=== PATIENT | male | born 1955 | race Caucasian/White ===

== ENCOUNTER 2020-06-23 08:18 | Outpatient (REF) | payer OTHER, SELFPAY ==
[2020-06-23 11:25] LABS: Hematocrit 44.3 % (42-52); Hemoglobin 14.6 g/dl (14.0-18.0); Mean Corpuscular Volume 88.1 fL (80-98); Mean Platelet Volume 12.1 fL (9.4-12.4); Platelet Count 195 X10*3/uL (160-400); Red Blood Count 5.03 X10*6/uL (4.60-5.80); Red Cell Distribution Width 12.2 % (11.0-16.0); White Blood Count 6.1 X10*3/uL (4.8-10.8)
[2020-06-23 11:53] LABS: Alanine Aminotransferase 20 U/L (0-40); Albumin Level 4.2 g/dL (3.5-5.0); Alkaline Phosphatase 79 U/L (39-117); Anion Gap 12 (12-20); Aspartate Amino Transferase 15 U/L (5-37); Bilirubin Total 0.6 mg/dL (0.0-1.0); Blood Urea Nitrogen 16 mg/dL (9-16); Calcium 8.7 mg/dL (8.4-10.2); Carbon Dioxide 26 mmol/L (22-29); Chloride 104 mmol/L (96-108); Cholesterol 170 mg/dL; Estimated Glomerular Filt Rate > 60; Glucose Fasting 97 mg/dL (60-99); HDL Cholesterol 42 mg/dL; LDL Cholesterol Calculated 105 mg/dl; Potassium 4.3 mmol/l (3.3-5.1); Sodium 138 mmol/L (135-145); Total Protein 6.7 g/dL (6.5-8.0); Triglycerides 115 mg/dL
[2020-06-23 11:57] LABS: Prostate Specific Antigen Scr 0.55 ng/mL (<0.05-4.0)
[2020-06-23 12:54] LABS: Glucose Urine UA NEG (NEG); Leukocyte Esterase Urine NEG (NEG); Nitrite Urine NEG (NEG); Urine Blood NEG (NEG); Urine Ketones NEG (NEG); Urine Protein NEG (NEG-TRACE)
[2020-06-23 12:55] LABS: Appearance Urine CLEAR; Color Urine YELLOW
== END 2020-06-23 08:19 | disposition home or self-care (01) ==
LOC: HO.HMGCLDS 08:18
PROVIDERS: PCP Internal Medicine; Visit Provider Internal Medicine
DX: Z00.00 Encounter for general adult medical examination without abnormal findings (principal); R73.9 Hyperglycemia, unspecified
CPT/HCPCS: 36415; 80053; 80061; 81003; 84153; 85027

== ENCOUNTER 2021-07-04 08:37 | Outpatient (REF) | payer OTHER, SELFPAY ==
[2021-07-04 11:33] LABS: Hematocrit 45.6 % (42.0-52.0); Hemoglobin 15.2 g/dl (14.0-18.0); Mean Corpuscular HGB Conc 33.3 g/dl (31.0-36.0); Mean Corpuscular Hemoglobin 28.9 pg (27.0-33.0); Mean Corpuscular Volume 86.7 fL (80.0-98.0); Mean Platelet Volume 12.1 fL (9.4-12.4); Platelet Count 194 X10*3/uL (160-400); Red Blood Count 5.26 X10*6/uL (4.60-5.80)
[2021-07-04 11:41] LABS: Appearance Urine CLEAR; Color Urine YELLOW; Glucose Urine UA NEG (NEG); Leukocyte Esterase Urine NEG (NEG); Nitrite Urine NEG (NEG); Specific Gravity - Urine <= 1.005 (1.005-1.025); Urine Blood NEG (NEG); Urine Ketones NEG (NEG); Urine Protein NEG (NEG-TRACE)
[2021-07-04 11:56] LABS: Alanine Aminotransferase 20 U/L (0-40); Albumin Level 4.3 g/dL (3.5-5.0); Alkaline Phosphatase 81 U/L (39-117); Anion Gap 11 (12-20); Aspartate Amino Transferase 22 U/L (5-37); Bilirubin Total 0.7 mg/dL (0.0-1.0); Blood Urea Nitrogen 14 mg/dL (9-16); Carbon Dioxide 28 mmol/L (22-29); Chloride 104 mmol/L (96-108); Cholesterol 179 mg/dL; Estimated Glomerular Filt Rate > 60; Glucose Fasting 107 mg/dL (60-99); HDL Cholesterol 39 mg/dL; LDL Cholesterol Calculated 106 mg/dl; Potassium 4.3 mmol/L (3.3-5.1); Sodium 139 mmol/L (135-145); Total Protein 6.8 g/dL (6.5-8.0); Triglycerides 173 mg/dL
[2021-07-04 12:38] LABS: Prostate Specific Antigen Scr 0.92 ng/mL (<0.05-4.0)
== END 2021-07-04 08:38 | disposition home or self-care (01) ==
LOC: HO.HMGCLDS 08:37
PROVIDERS: PCP Internal Medicine; Visit Provider Internal Medicine
DX: Z00.00 Encounter for general adult medical examination without abnormal findings (principal); Z12.5 Encounter for screening for malignant neoplasm of prostate; G47.33 Obstructive sleep apnea (adult) (pediatric); E66.3 Overweight; Z99.89 Dependence on other enabling machines and devices
CPT/HCPCS: 36415; 80053; 80061; 81003; 84153; 85027

== ENCOUNTER 2022-02-23 08:15 | Outpatient (REF) | payer OTHER, SELFPAY ==
[2022-02-23 11:25] LABS: Appearance Urine CLEAR; Color Urine YELLOW; Glucose Urine UA NEG (NEG); Leukocyte Esterase Urine NEG (NEG); Nitrite Urine NEG (NEG); Specific Gravity - Urine 1.015 (1.005-1.025); Urine Blood TRACE (NEG); Urine Ketones NEG (NEG); Urine Protein NEG (NEG-TRACE)
[2022-02-23 11:44] LABS: Alanine Aminotransferase 21 U/L (0-40); Albumin Level 4.4 g/dL (3.5-5.0); Alkaline Phosphatase 90 U/L (39-117); Anion Gap 12 (12-20); Aspartate Amino Transferase 16 U/L (5-37); Bilirubin Total 0.7 mg/dL (0.0-1.0); Blood Urea Nitrogen 17 mg/dL (9-16); Calcium 9.5 mg/dL (8.4-10.2); Carbon Dioxide 28 mmol/L (22-29); Chloride 106 mmol/L (96-108); Cholesterol 172 mg/dL; Estimated Glomerular Filt Rate > 60; Glucose Fasting 99 mg/dL (60-99); HDL Cholesterol 40 mg/dL; LDL Cholesterol Calculated 112 mg/dl; Potassium 4.5 mmol/L (3.3-5.1); Sodium 141 mmol/L (135-145); Triglycerides 100 mg/dL
[2022-02-23 11:53] LABS: Creatinine Urine 154.84 mg/dL; Microalbum/Creatinine Ratio Ur 4.5 ug/mg cr
[2022-02-23 12:03] LABS: Estimated Average Glucose 97 mg/dL
[2022-02-23 12:23] LABS: RBC Urine 0-2 /HPF (0); WBC Urine 0 /HPF (0-4)
== END 2022-02-23 08:16 | disposition home or self-care (01) ==
LOC: HO.HMGCLDS 08:15
PROVIDERS: Visit Provider Internal Medicine
DX: Z00.00 Encounter for general adult medical examination without abnormal findings (principal); R73.9 Hyperglycemia, unspecified; E66.3 Overweight
CPT/HCPCS: 36415; 80053; 80061; 81001; 82043; 83036

== ENCOUNTER 2022-08-08 07:45 | Outpatient (REF) | payer OTHER, SELFPAY ==
[2022-08-08 11:23] LABS: MANUAL DIFF FLAG NO
[2022-08-08 11:33] LABS: Appearance Urine Clear; Color Urine Yellow; Glucose Urine UA Negative (Negative); Leukocyte Esterase Urine Negative (Negative); Nitrite Urine Negative (Negative); PH 6.5 (5.0-9.0); Specific Gravity - Urine 1.015 (1.005-1.025); UMIC TRIGGER UA YES; Urine Blood Trace (Negative); Urine Ketones Negative (Negative); Urine Protein Negative (Neg-Trace)
[2022-08-08 11:36] LABS: Basophils Absolute Auto 0.1 X10*3/uL (0.0-0.2); Basophils Percent Auto 0.8 % (0-2); Eosinophils Absolute Auto 0.3 X10*3/uL (0.0-0.4); Eosinophils Percent Auto 4.3 % (0-4); Hematocrit 45.3 % (42.0-52.0); Imm Gran Abs Auto 0.02 X10*3/uL (0.00-0.03); Imm Gran Pct Auto 0.3 % (0.0-0.4); Lymphocytes Absolute Auto 1.8 X10*3/uL (1.2-4.9); Lymphocytes Percent Auto 28.3 % (20-40); Mean Corpuscular HGB Conc 33.1 g/dl (31.0-36.0); Mean Corpuscular Hemoglobin 28.5 pg (27.0-33.0); Mean Corpuscular Volume 86.1 fL (80.0-98.0); Mean Platelet Volume 11.3 fL (9.4-12.4); Monocytes Absolute Auto 0.4 X10*3/uL (0.1-1.2); Monocytes Percent Auto 6.9 % (2-11); Neutrophils Absolute Auto 3.7 x10*3/uL (2.0-8.3); Neutrophils Percent Auto 59.4 % (45-73); Platelet Count 196 X10*3/uL (160-400); Red Blood Count 5.26 X10*6/uL (4.60-5.80); Red Cell Distribution Width 12.3 % (11.0-16.0); White Blood Count 6.2 X10*3/uL (4.8-10.8)
[2022-08-08 11:40] LABS: Bacteria Urine None Seen (None Seen); Hyaline Casts Urine 0-2 /LPF (0-2); RBC Urine 0-2 /HPF (0-2); Squamous Epithelial Cell Urine 0-2 /HPF (0-2); WBC Urine 0-5 /HPF (0-5)
[2022-08-08 12:57] LABS: Alanine Aminotransferase 22 U/L (0-40); Albumin Level 4.3 g/dL (3.5-5.0); Alkaline Phosphatase 87 U/L (39-117); Anion Gap 11 (12-20); Aspartate Amino Transferase 17 U/L (5-37); Bilirubin Total 0.8 mg/dL (0.0-1.0); Blood Urea Nitrogen 18 mg/dL (9-16); Calcium 9.1 mg/dL (8.4-10.2); Carbon Dioxide 29 mmol/L (22-29); Chloride 105 mmol/L (96-108); Cholesterol 171 mg/dL; Estimated Glomerular Filt Rate > 60; Glucose Fasting 102 mg/dL (60-99); HDL Cholesterol 40 mg/dL; LDL Cholesterol Calculated 112 mg/dl; PSA,Total (Free>4and<10) 0.87 ng/mL (0.00-4.00); Potassium 4.5 mmol/L (3.3-5.1); Sodium 140 mmol/L (135-145); Total Protein 6.8 g/dL (6.5-8.0); Triglycerides 97 mg/dL
== END 2022-08-08 07:46 | disposition home or self-care (01) ==
LOC: HO.HMGCLDS 07:45
PROVIDERS: PCP Internal Medicine; Visit Provider Internal Medicine
DX: Z00.00 Encounter for general adult medical examination without abnormal findings (principal); R73.9 Hyperglycemia, unspecified; E66.3 Overweight; Z12.5 Encounter for screening for malignant neoplasm of prostate
CPT/HCPCS: 36415; 80053; 80061; 81001; 84153; 85025

== ENCOUNTER 2023-10-03 07:49 | Outpatient (REF) | payer OTHER, SELFPAY ==
[2023-10-03 11:43] LABS: Hemoglobin 15.7 g/dl (14.0-18.0); Mean Corpuscular HGB Conc 34.1 g/dl (31.0-36.0); Mean Corpuscular Hemoglobin 29.5 pg (27.0-33.0); Mean Corpuscular Volume 86.5 fL (80.0-98.0); Mean Platelet Volume 11.6 fL (9.4-12.4); Platelet Count 197 X10*3/uL (160-400); Red Blood Count 5.32 X10*6/uL (4.60-5.80); Red Cell Distribution Width 11.9 % (11.0-16.0); White Blood Count 6.7 X10*3/uL (4.8-10.8)
[2023-10-03 11:45] LABS: Alanine Aminotransferase 16 U/L (0-40); Albumin Level 4.1 g/dL (3.5-5.0); Alkaline Phosphatase 72 U/L (39-117); Anion Gap 10 (12-20); Aspartate Amino Transferase 15 U/L (5-37); Bilirubin Total 0.9 mg/dL (0.0-1.0); Blood Urea Nitrogen 19 mg/dL (9-16); Calcium 9.4 mg/dL (8.4-10.2); Carbon Dioxide 29 mmol/L (22-29); Chloride 104 mmol/L (96-108); Cholesterol 182 mg/dL (<200); Estimated Glomerular Filt Rate > 60; Glucose Fasting 98 mg/dL (60-99); HDL Cholesterol 45 mg/dL (>40); LDL Cholesterol Calculated 117 mg/dL (<100); Potassium 4.3 mmol/L (3.3-5.1); Sodium 139 mmol/L (135-145); Triglycerides 100 mg/dL (<150)
[2023-10-03 11:46] LABS: Estimated Average Glucose 97 mg/dL
[2023-10-03 12:09] LABS: PSA,Total (Free>4and<10) 1.31 ng/mL (0.00-4.00)
== END 2023-10-03 07:50 | disposition home or self-care (01) ==
LOC: HO.HMGCLDS 07:49
PROVIDERS: PCP Internal Medicine; Visit Provider Internal Medicine
DX: Z00.00 Encounter for general adult medical examination without abnormal findings (principal); Z12.5 Encounter for screening for malignant neoplasm of prostate; R73.9 Hyperglycemia, unspecified; N40.0 Benign prostatic hyperplasia without lower urinary tract symptoms; I10 Essential (primary) hypertension
CPT/HCPCS: 36415; 80053; 80061; 83036; 84153; 85027

== ENCOUNTER 2023-10-24 11:11 | Outpatient (AMB) | payer OTHER, SELFPAY ==
[2023-10-24 11:13] VITALS: BP 138/76; PULSE 83; O2SAT 98; BMI 27.9
--- NOTE | 2023-10-24 11:13 | MHC.PC.OV ---
Vital Signs 10/24/23 11:13 Height 6 ft Weight 206 lb BMI 27.9 BP 138/76 Blood Pressure Location Lt brachial Position Sitting Pulse 83 Pulse Source Pulse Oximeter Pulse Oximetry (%) 98 Oxygen Delivery Method Room Air Intake Visit Reasons: Medications F/U Intake Note: Pt is here today for a follow up visit. Allergies No Known Allergies Allergy (Verified 10/24/23 11:16) Medication List - Last Reconciled 10/24/23 by Rabia Chun MD metoprolol succinate ER 50 mg PO DAILY semaglutide (weight loss) (Wegovy) 2.4 mg (0.75 mL) subcut QWEEK Tobacco use date assessed: 10/24/23 Fall risk assessment: No Falls in past year Last assessed Fall Risk: 10/24/23 Dental Screening Dental Screen Date: 10/24/23 Did you have a dental visit in the last 12 months?: Yes Did you have a dental problem in the last 6 months where you did not have access to dental care?: No Was dental information given to patient?: Patient has dentist HPI HPI Comments History of Present Illness Details Pt presents for PE. His 90 y/o mother is hospitalized at [facility] for CHF. Pt's daughter is getting in December in [place]. Patient has been under stress and not exercising regulalyr FORMERLY [facility], [facility] Medical History Hyperglycemia TAPAN on CPAP Overweight BPH (benign prostatic hyperplasia) History of basal cell cancer Annual physical exam Surgical History (Updated 10/24/23 @ 15:40 by Rabia Chun MD) H/O colonoscopy Family History Father No problems noted. Mother Pacemaker Social History Housing: House Patient Tobacco Use Status: Never used Tobacco e-Cigarette/Vaping Use: Never Used Current occupational status: employed Cognitive needs: No Hearing needs: Yes Vision needs: Yes Questionnaire Thrive Questionnaire Date Thrive assessed: 08/14/22 AUDIT C Alcohol Use Questionnaire (AUDIT-C) 1. How often do you have a drink containing alcohol?: 2-3 times a week 2. How many drinks containing alcohol do you have on a typical day when you are drinking?: 1 or 2 3. How often do you have six or more drinks on one occasion?: Never Total Score: 3 ROGERIO-7 AMB Questionnaire ROGERIO-7 Date ROGERIO - 7 assessed: 08/14/22 Feeling nervous, anxious, or on edge: 0 = Not at all Not being able to stop or control worryin = Not at all Worrying too much about different things: 0 = Not at all Trouble relaxin = Not at all Being so restless that it is hard to sit still: 0 = Not at all Becoming easily annoyed or irritable: 0 = Not at all Feeling afraid as if something awful might happen: 0 = Not at all Total ROGERIO-7 score (0-4 normal; 5-9 mild; 10-14 moderate; 15-21 severe): 0 Source: Developed by Drs. Robert Mejia, Miriam Caro, Griffin Renner and colleagues, with an educational louis from [employer]. Review of Systems Const All systems reviewed & are unremarkable except as noted in HPI and below Reports no additional complaints Eyes Reports no additional complaints ENT Reports no additional complaints Card Reports no additional complaints Resp Reports no additional complaints GI Reports no additional complaints Reports no additional complaints Musc Reports no additional complaints Physical exam (Primary Care) Vital Signs: Last Vital Signs Pulse 83 10/24/23 11:13 BP 138/76 10/24/23 11:13 Pulse Ox 98 10/24/23 11:13 Oxygen Delivery Method Room Air 10/24/23 11:13 BMI result Body Mass Index 27.9 Tobacco/Smoking Status: Tobacco use Status Tobacco use date assessed 10/24/23 10/24/23 11:19 Patient Tobacco Use Status Never used Tobacco 10/24/23 11:19 e-Cigarette/Vaping Use Never Used 10/24/23 11:15 Thrive Assessment: Date of Thrive Assessment Date Thrive assessed 08/14/22 10/24/23 11:15 Const General: no acute distress HENMT Head: Yes normal to inspection General nose exam: Normal external nose present Mouth: Normal oral and palatal mucosa present Eyes General: appearance normal, both eyes and all related structures Neck Neck: Yes no lymphadenopathy and Yes supple Resp Effort & Inspection: normal respiratory effort Auscultation: clear to auscultation bilaterally Cardio Rhythm: regular rhythm Heart sounds: S1 normal heart sound present and S2 normal heart sound present GI Inspection: Yes normal to inspection Palpation (GI): Soft to palpation Percussion: Yes normal to percussion Auscultation: normal bowel sounds Assessment and Plan Assessment & Plan (1) BPH (benign prostatic hyperplasia): Comment: prostate nodules s/p bx, [facility] Urology Dr. Jain Code(s): N40.0 - Benign prostatic hyperplasia without lower urinary tract symptoms Plan: Follow-up with urology (2) HTN (hypertension): Code(s): I10 - Essential (primary) hypertension Plan: Increase metoprolol to 50 mg a day follow-up in 6 weeks for blood pressure (3) TAPAN on CPAP: Comment: f/u Code(s): G47.33 - Obstructive sleep apnea (adult) (pediatric); Z99.89 - Dependence on other enabling machines and devices Plan: Continue CPAP and follow-up with pulmonology (4) Overweight: Comment: on Wegovy Code(s): E66.3 - Overweight Plan: Stable on Wegovy (5) H/O colonoscopy: Comment: 12/2016 polyps recheck 5 years Code(s): Z98.890 - Other specified postprocedural states Plan: Patient will call [facility] GI to schedule follow-up colonoscopy Medications: New metoprolol succinate ER 50 mg PO DAILY 90 tabs 0RF Coding Level of Care Code Est Pt Prev Care >65y(56338) Diagnoses BPH (benign prostatic hyperplasia) N40.0 HTN (hypertension) I10 TAPAN on CPAP G47.33; Z99.89 Overweight E66.3 H/O colonoscopy Z98.890
== END 2023-10-24 15:41 | disposition home or self-care (01) ==
PROVIDERS: PCP Internal Medicine; Visit Provider Internal Medicine
DX: Z00.00 Encounter for general adult medical examination without abnormal findings (principal); N40.0 Benign prostatic hyperplasia without lower urinary tract symptoms; I10 Essential (primary) hypertension; G47.33 Obstructive sleep apnea (adult) (pediatric); Z99.89 Dependence on other enabling machines and devices; E66.3 Overweight; Z98.890 Other specified postprocedural states
CPT/HCPCS: 99397

== ENCOUNTER 2023-12-05 10:58 | Outpatient (AMB) | payer OTHER, SELFPAY ==
[2023-12-05 10:59] VITALS: BP 120/74; PULSE 72; O2SAT 98; BMI 28.1
--- NOTE | 2023-12-05 10:59 | MHC.PC.OV ---
Vital Signs 12/05/23 10:59 Height 6 ft Weight 207 lb BMI 28.1 BP 120/74 Blood Pressure Location Rt brachial Position Sitting Pulse 72 Pulse Source Pulse Oximeter Pulse Oximetry (%) 98 Oxygen Delivery Method Room Air Intake Visit Reasons: 6 week follow up Intake Note: Pt is here today for 6 weeks follow up on weight. Allergies No Known Allergies Allergy (Verified 12/05/23 10:59) Medication List - Last Reconciled 12/05/23 by Rabia Chun MD metoprolol succinate ER 50 mg PO DAILY semaglutide (weight loss) (Wegovy) 2.4 mg (0.75 mL) subcut QWEEK Tobacco use date assessed: 12/05/23 Dental Screening Dental Screen Date: 10/24/23 HPI 6 week follow up HPI Details Patient presents for the follow-up on hypertension better controlled high dose of metoprolol. Patient has been exercising regularly. His daughter is getting in 5 weeks in [place]. [facility] Medical History Hyperglycemia TAPAN on CPAP Overweight BPH (benign prostatic hyperplasia) History of basal cell cancer Annual physical exam Surgical History H/O colonoscopy Family History Father No problems noted. Mother Pacemaker Social History Housing: House Patient Tobacco Use Status: Never used Tobacco e-Cigarette/Vaping Use: Never Used service: No Current occupational status: employed Cognitive needs: No Hearing needs: Yes Vision needs: Yes Questionnaire Thrive Questionnaire Date Thrive assessed: 08/14/22 ROGERIO-7 AMB Questionnaire ROGERIO-7 Date ROGERIO - 7 assessed: 08/14/22 Source: Developed by Drs. Robert Mejia, Miriam Caro, Griffin Renner and colleagues, with an educational louis from [employer]. Review of Systems Const All systems reviewed & are unremarkable except as noted in HPI and below Eyes Reports no additional complaints ENT Reports no additional complaints Card Reports no additional complaints Resp Reports no additional complaints GI Reports no additional complaints Physical exam (Primary Care) Vital Signs: Last Vital Signs Pulse 72 12/05/23 10:59 BP 120/74 12/05/23 10:59 Pulse Ox 98 12/05/23 10:59 Oxygen Delivery Method Room Air 12/05/23 10:59 BMI result Body Mass Index 28.1 Tobacco/Smoking Status: Tobacco use Status Tobacco use date assessed 12/05/23 12/05/23 11:03 Patient Tobacco Use Status Never used Tobacco 12/05/23 11:03 e-Cigarette/Vaping Use Never Used 12/05/23 11:03 Thrive Assessment: Date of Thrive Assessment Date Thrive assessed 08/14/22 12/05/23 11:03 Const General: no acute distress HENMT Head: Yes normal to inspection Neck Neck: Yes supple Resp Effort & Inspection: normal respiratory effort Auscultation: clear to auscultation bilaterally Cardio Rhythm: regular rhythm Heart sounds: S1 normal heart sound present and S2 normal heart sound present GI Inspection: Yes normal to inspection Palpation (GI): Soft to palpation Assessment and Plan Assessment & Plan (1) HTN (hypertension): Code(s): I10 - Essential (primary) hypertension Plan: Continue metoprolol follow-up in 6 months (2) Overweight: Comment: on Wegovy Code(s): E66.3 - Overweight Plan: Well-balanced diet regular physical activity discussed with the patient continue Wegovy Orders: Orders Comprehensive [place]. Panel Fast 6 Months I10 - Essential (primary) hypertension, R73.9 - Hyperglycemia, unspecified, Z00.00 - Encounter for general adult medical examination without abnormal findings Lipid Panel 6 Months I10 - Essential (primary) hypertension, R73.9 - Hyperglycemia, unspecified, Z00.00 - Encounter for general adult medical examination without abnormal findings Complete Blood Count Auto Diff 6 Months I10 - Essential (primary) hypertension, R73.9 - Hyperglycemia, unspecified, Z00.00 - Encounter for general adult medical examination without abnormal findings UA w Microscopic 6 Months I10 - Essential (primary) hypertension, R73.9 - Hyperglycemia, unspecified, Z00.00 - Encounter for general adult medical examination without abnormal findings Hemoglobin A1c 6 Months I10 - Essential (primary) hypertension, R73.9 - Hyperglycemia, unspecified, Z00.00 - Encounter for general adult medical examination without abnormal findings Coding Level of Care Code Est Pt Level 3 (98224) Diagnoses HTN (hypertension) I10 Overweight E66.3
== END 2023-12-05 11:57 | disposition home or self-care (01) ==
PROVIDERS: PCP Internal Medicine; Visit Provider Internal Medicine
DX: I10 Essential (primary) hypertension (principal); E66.3 Overweight
CPT/HCPCS: 99213

== ENCOUNTER 2024-10-15 09:18 | Outpatient (REF) | payer OTHER, SELFPAY ==
[2024-10-15 10:13] LABS: MANUAL DIFF FLAG NO
[2024-10-15 10:21] LABS: Appearance Urine Clear; Basophils Absolute Auto 0.1 X10*3/uL (0.0-0.2); Basophils Percent Auto 0.7 % (0-2); Color Urine Yellow; Eosinophils Absolute Auto 0.3 X10*3/uL (0.0-0.4); Eosinophils Percent Auto 4.3 % (0-4); Glucose Urine UA Negative (Negative); Hemoglobin 15.4 g/dl (14.0-18.0); Imm Gran Abs Auto 0.03 X10*3/uL (0.00-0.03); Imm Gran Pct Auto 0.4 % (0.0-0.4); Leukocyte Esterase Urine Negative (Negative); Lymphocytes Absolute Auto 1.7 X10*3/uL (1.2-4.9); Lymphocytes Percent Auto 23.9 % (20-40); Mean Corpuscular Hemoglobin 29.4 pg (27.0-33.0); Mean Corpuscular Volume 84.1 fL (80.0-98.0); Mean Platelet Volume 11.2 fL (9.4-12.4); Monocytes Absolute Auto 0.4 X10*3/uL (0.1-1.2); Monocytes Percent Auto 6.2 % (2-11); Neutrophils Absolute Auto 4.5 x10*3/uL (2.0-8.3); Neutrophils Percent Auto 64.5 % (45-73); Nitrite Urine Negative (Negative); PH 6.5 (5.0-9.0); Platelet Count 214 X10*3/uL (160-400); Red Blood Count 5.23 X10*6/uL (4.60-5.80); Red Cell Distribution Width 12.1 % (11.0-16.0); UMIC TRIGGER UA YES; Urine Blood Small (1+) (Negative); Urine Ketones Negative (Negative); Urine Protein Negative (Neg-Trace)
[2024-10-15 10:27] LABS: Bacteria Urine None Seen (None Seen); Hyaline Casts Urine 0-2 /LPF (0-2); Squamous Epithelial Cell Urine 0-2 /HPF (0-2); WBC Urine 0-5 /HPF (0-5)
[2024-10-15 10:28] LABS: Estimated Average Glucose 100 mg/dL; Hemoglobin A1C 127.7599 umol/L; Hemoglobin A1c % 5.1 % (<6.0); Total Hemoglobin (HGBA1C) 4021.1358 umol/L
[2024-10-15 10:52] LABS: PSA,Total (Free>4and<10) 0.82 ng/mL (0.00-4.00)
[2024-10-15 10:53] LABS: Alanine Aminotransferase 30 U/L (0-40); Albumin Level 4.2 g/dL (3.5-5.0); Alkaline Phosphatase 73 U/L (39-117); Anion Gap 10 (12-20); Aspartate Amino Transferase 20 U/L (5-37); Bilirubin Total 0.8 mg/dL (0.0-1.0); Blood Urea Nitrogen 17 mg/dL (9-16); Calcium 9.4 mg/dL (8.4-10.2); Carbon Dioxide 28 mmol/L (22-29); Chloride 106 mmol/L (96-108); Cholesterol 169 mg/dL (<200); Estimated Glomerular Filt Rate > 60; Glucose Fasting 90 mg/dL (60-99); HDL Cholesterol 42 mg/dL (>40); LDL Cholesterol Calculated 108 mg/dL (<100); Potassium 4.3 mmol/L (3.3-5.1); Sodium 140 mmol/L (135-145); Total Protein 7.2 g/dL (6.5-8.0); Triglycerides 95 mg/dL (<150)
== END 2024-10-15 09:19 | disposition home or self-care (01) ==
LOC: HO.HMGCLDS 09:18
PROVIDERS: PCP Internal Medicine; Visit Provider Internal Medicine
DX: Z00.00 Encounter for general adult medical examination without abnormal findings (principal); I10 Essential (primary) hypertension; R73.9 Hyperglycemia, unspecified; N40.0 Benign prostatic hyperplasia without lower urinary tract symptoms; Z12.5 Encounter for screening for malignant neoplasm of prostate
CPT/HCPCS: 36415; 80053; 80061; 81001; 83036; 84153; 85025

== ENCOUNTER 2024-10-20 11:51 | Outpatient (AMB) | payer OTHER, SELFPAY ==
[2024-10-20 12:17] VITALS: BP 128/70; PULSE 75; RESP 18; TEMP 37.2; O2SAT 98; BMI 28.3
--- NOTE | 2024-10-20 12:17 | A.OFFPC_ITS ---
Vital Signs 10/20/24 12:17 Height 6 ft Weight 209 lb BMI 28.3 BP 128/70 Blood Pressure Location Lt brachial Position Sitting Respiration 18 Pulse 75 Pulse Source Pulse Oximeter Temp 99.0 F Temp Source Oral Pulse Oximetry (%) 98 Oxygen Delivery Method Room Air Intake Visit Reasons: Annual PE/Over due Intake Note: Pt is here today for PE. Allergies No Known Allergies Allergy (Verified 10/20/24 12:35) Medication List - Last Reconciled 10/20/24 by Rabia Chun MD metoprolol succinate ER 50 mg PO DAILY semaglutide (weight loss) (Wegovy) 2.4 mg (0.75 mL) subcut QWEEK Tobacco use date assessed: 10/20/24 Fall risk assessment: No Falls in past year Last assessed Fall Risk: 10/20/24 Dental Screening Dental Screen Date: 10/20/24 Did you have a dental visit in the last 12 months?: Yes Did you have a dental problem in the last 6 months where you did not have access to dental care?: No Was dental information given to patient?: Patient has dentist HPI Annual PE/Over due HPI Details Pt presents for PE. He complains of chronic left shoulder pain and stiffness worse when trying to reach overhead or sleeping on the left side. Patient works out at home. He denies any joint injury [facility] Medical History (Updated 10/20/24 @ 15:04 by Rabia Chun MD) Hyperglycemia TAPAN on CPAP Overweight BPH (benign prostatic hyperplasia) History of basal cell cancer Annual physical exam Surgical History (Updated 10/20/24 @ 12:47 by Rabia Chun MD) H/O colonoscopy Family History Father No problems noted. Mother Pacemaker Social History Housing: House Patient Tobacco Use Status: Never used Tobacco e-Cigarette/Vaping Use: Never Used service: No Current occupational status: employed Cognitive needs: No Hearing needs: Yes Vision needs: Yes Questionnaire PHQ-9 Over the last 2 weeks, how often have you been bothered by any of the following problems? 1. Little interest or pleasure in doing things: not at all 2. Feeling down, depressed, or hopeless: not at all 3. Trouble falling or staying asleep, or sleeping too much: not at all 4. Feeling tired or having little energy: not at all 5. Poor appetite or overeating: not at all 6. Feeling bad about yourself - or that you are a failure or have let yourself or your family down: not at all 7. Trouble concentrating on things, such as reading the newspaper or watching television: not at all 8. Moving or speaking so slowly that other people could have noticed. Or the opposite - being so fidgety or restless that you have been moving around a lot more than usual: not at all 9. Thoughts that you would be better off or of hurting yourself in some way: not at all Total score: 0 Depression Screening Interpretation: Negative Depression Screening Done: Yes 28638 - PHQ-9 Billing: Yes Source: Developed by Drs. Robert Mejia, Miriam Caro, Griffin Renner and colleagues, with an educational louis from [employer]. Thrive Questionnaire Date Thrive assessed: 10/20/24 I am a: Patient What is your living situation today?: I have a steady place to live Within the past 12 months, did the food you bought not last and you didn't have the money to get more?: Never true Within the past 12 months, did you worry whether your food would run out before you got money to buy more?: Never true Do you have trouble paying for medicines?: No Do you have trouble getting transportation to medical appointments?: No Do you have trouble paying your heating and electricity bill?: No Do you have trouble taking care of your child, family member or friend?: No Do you have trouble with day-to-day activities such as bathing, preparing meals, shopping, managing finances, etc.?: No Are you currently unemployed and looking for a job?: No Are you interested in more education?: No Please select the resources that you would like help with: None Currently or been in a relationship where the following occur: I choose not to answer THRIVE Score: 0 AUDIT C Alcohol Use Questionnaire (AUDIT-C) 1. How often do you have a drink containing alcohol?: 2-4 times a month 2. How many drinks containing alcohol do you have on a typical day when you are drinking?: 1 or 2 3. How often do you have six or more drinks on one occasion?: Never Total Score: 2 Score Reviewed/Action Taken: Yes ROGERIO-7 AMB Questionnaire ROGERIO-7 Date ROGERIO - 7 assessed: 10/20/24 Feeling nervous, anxious, or on edge: 0 = Not at all Not being able to stop or control worryin = Not at all Worrying too much about different things: 0 = Not at all Trouble relaxin = Not at all Being so restless that it is hard to sit still: 0 = Not at all Becoming easily annoyed or irritable: 0 = Not at all Feeling afraid as if something awful might happen: 0 = Not at all Total ROGERIO-7 score (0-4 normal; 5-9 mild; 10-14 moderate; 15-21 severe): 0 Source: Developed by Drs. Robert Mejia, Miriam Caro, Griffin Renner and colleagues, with an educational louis from [employer]. ROGERIO-7 Assessment Billing ROGERIO-7 Assessment Tool: ROGERIO-7 Assessment 04783 Review of Systems Const All systems reviewed & are unremarkable except as noted in HPI and below Eyes Reports no additional complaints ENT Reports no additional complaints Card Reports no additional complaints Resp Reports no additional complaints GI Reports no additional complaints Reports no additional complaints Musc Reports no additional complaints Physical exam (Primary Care) Vital Signs: Last Vital Signs Temp 99.0 F 10/20/24 12:17 Pulse 75 10/20/24 12:17 Resp 18 10/20/24 12:17 BP 128/70 10/20/24 12:17 Pulse Ox 98 10/20/24 12:17 Oxygen Delivery Method Room Air 10/20/24 12:17 BMI result Body Mass Index 28.3 Tobacco/Smoking Status: Tobacco use Status Tobacco use date assessed 10/20/24 10/20/24 12:18 Patient Tobacco Use Status Never used Tobacco 10/20/24 12:18 e-Cigarette/Vaping Use Never Used 10/20/24 12:18 PHQ-9: PHQ-9 Score PHQ-9: Total score 0 10/20/24 12:38 Depression Screening Interpretation: Negative Thrive Assessment: Date of Thrive Assessment Date Thrive assessed 10/20/24 10/20/24 12:18 Currently or been in a relationship where the following occur: I choose not to answer Const General: no acute distress HENMT Head: Yes normal to inspection Ears: hearing grossly normal bilaterally Face and sinus: Yes normal facial exam Mouth: Normal oral and palatal mucosa present Throat: Yes posterior oropharynx normal Eyes General: appearance normal, both eyes and all related structures Neck Neck: Yes no lymphadenopathy and Yes supple Resp Effort & Inspection: normal respiratory effort Auscultation: clear to auscultation bilaterally Cardio Rhythm: regular rhythm Heart sounds: S1 normal heart sound present and S2 normal heart sound present GI Inspection: Yes normal to inspection Palpation (GI): Soft to palpation Percussion: Yes normal to percussion Auscultation: normal bowel sounds Extrem Other: There is significantly decreased range of motion of both shoulders right more than left. There is no joint tenderness General: Yes no clubbing, cyanosis or edema Coding Level of Care Code Est Pt Prev Care >65y(74743) Diagnoses Microhematuria R31.29 Shoulder pain, bilateral M25.511; M25.512 Annual physical exam Z00.00 Overweight E66.3 HTN (hypertension) I10 Additional Codes ROGERIO-7 Assessment Billing - ROGERIO-7 Assessment Tool: ROGERIO-7 Assessment 49129 ([id number]) PHQ-9 - 84652 - PHQ-9 Billing: Yes ([id number]) Assessment & Plan Assessment & Plan (1) Microhematuria: Comment: hx negative cystoscopy 2015, established with [facility] Code(s): R31.29 - Other microscopic hematuria Category: Medical Plan: OBTAIN URINE CYTOLOGY RENAL AND BLADDER ULTRASOUND, and follow-up with Urology (2) Shoulder pain, bilateral: Code(s): M25.511 - Pain in right shoulder; M25.512 - Pain in left shoulder Category: Medical Plan: Obtain x-rays of both shoulders patient will schedule an appointment for physical therapy at [facility]. If the pain persists after physical therapy he will be referred to orthopedic surgeon (3) Annual physical exam: Code(s): Z00.00 - Encounter for general adult medical examination without abnormal findings Category: Medical Plan: Well-balanced diet regular physical activity discussed with the patient. Patient will be referred to GI for colonoscopy he is due in June of 2025 (4) Overweight: Comment: on Wegovy Code(s): E66.3 - Overweight Category: Medical Plan: Continue Wegovy decrease caloric intake regular physical activity (5) HTN (hypertension): Code(s): I10 - Essential (primary) hypertension Category: Medical Plan: Continue metoprolol, physical in 1 year Orders: Orders US bladder Today R31.29 - Other microscopic hematuria UA w Microscopic Today R31.29 - Other microscopic hematuria XR shoulder RT min 2V Today M25.511 - Pain in right shoulder, M25.512 - Pain in left shoulder PT Evaluation and Treatment Today M25.511 - Pain in right shoulder, M25.512 - Pain in left shoulder Complete Blood Count Auto Diff 1 Year I10 - Essential (primary) hypertension, N40.0 - Benign prostatic hyperplasia without lower urinary tract symptoms, R73.9 - Hyperglycemia, unspecified, Z00.00 - Encounter for general adult medical examination without abnormal findings UA w Microscopic 1 Year I10 - Essential (primary) hypertension, N40.0 - Benign prostatic hyperplasia without lower urinary tract symptoms, R73.9 - Hyperglycemia, unspecified, Z00.00 - Encounter for general adult medical examination without abnormal findings US renal BI Today R31.29 - Other microscopic hematuria Urine Cytology Today R31.29 - Other microscopic hematuria XR shoulder LT min 2V Today M25.511 - Pain in right shoulder, M25.512 - Pain in left shoulder Comprehensive [place]. Panel Fast 1 Year I10 - Essential (primary) hypertension, N40.0 - Benign prostatic hyperplasia without lower urinary tract symptoms, R73.9 - Hyperglycemia, unspecified, Z00.00 - Encounter for general adult medical examination without abnormal findings Lipid Panel 1 Year I10 - Essential (primary) hypertension, N40.0 - Benign p rostatic hyperplasia without lower urinary tract symptoms, R73.9 - Hyperglycemia, unspecified, Z00.00 - Encounter for general adult medical examination without abnormal findings PSA,Total (Free>4and<10) 1 Year I10 - Essential (primary) hypertension, N40.0 - Benign prostatic hyperplasia without lower urinary tract symptoms, R73.9 - Hyperglycemia, unspecified, Z00.00 - Encounter for general adult medical examination without abnormal findings Referrals Gastroenterology Referral Z00.00 - Encounter for general adult medical examination without abnormal findings
== END 2024-10-20 13:07 | disposition home or self-care (01) ==
PROVIDERS: PCP Internal Medicine; Visit Provider Internal Medicine
DX: R31.29 Other microscopic hematuria (principal); M25.511 Pain in right shoulder; M25.512 Pain in left shoulder; Z00.00 Encounter for general adult medical examination without abnormal findings; E66.3 Overweight; I10 Essential (primary) hypertension

== ENCOUNTER 2024-10-20 11:51 | Outpatient (REF) | payer OTHER, SELFPAY ==
--- NOTE | ~2024-10-20 | XR_ITS ---
EXAMINATION: XR SHOULDER, RIGHT CLINICAL INFORMATION: M25.511 - Pain in right shoulder COMPARISON: None available. TECHNIQUE: Three views of the right shoulder. FINDINGS: Normal bone mineralization. No fracture, dislocation, or suspicious bone lesion. Normal alignment. Severe osteoarthritis glenohumeral joint with large marginal productive osteophytes, joint space loss, and subchondral sclerosis. Moderate to severe arthritic spurring of the AC joint both superiorly and inferiorly. There is a neutral lateral acromion. Mild undersurface spurring. Moderate narrowing of the subacromial space. Remainder of the soft tissue and bony structures appear normal. XR/XR shoulder RT min 2V IMPRESSION: 1. No acute findings right shoulder. 2. Advanced osteoarthritis glenohumeral joint and AC joint. Electronically signed by: Bunny Garcia MD 10/21/2024 10:05 AM ARELY
--- NOTE | ~2024-10-20 | XR_ITS ---
EXAMINATION: XR SHOULDER, LEFT CLINICAL INFORMATION: Pain in left shoulder. COMPARISON: None available. TECHNIQUE: Three views of the left shoulder. FINDINGS: Normal bone mineralization. No fracture, dislocation, or suspicious bone lesion. Normal alignment. Severe osteoarthritis glenohumeral joint with large marginal productive osteophytes, joint space loss, and subchondral sclerosis. Severe arthritic spurring of the AC joint both superiorly and inferiorly. There is a neutral lateral acromion. Mild undersurface spurring. Moderate narrowing of the subacromial space. Remainder of the soft tissue and bony structures appear normal. XR/XR shoulder LT min 2V IMPRESSION: 1. No acute findings left shoulder. 2. Advanced osteoarthritis glenohumeral joint and AC joint. Electronically signed by: Bunny Garcia MD 10/21/2024 10:04 AM ARELY GOINS
== END 2024-10-20 11:52 | disposition home or self-care (01) ==
LOC: HO.HMGCX 11:51
PROVIDERS: PCP Internal Medicine; Visit Provider Internal Medicine
DX: Z00.00 Encounter for general adult medical examination without abnormal findings (principal); M25.511 Pain in right shoulder; M25.512 Pain in left shoulder; R31.29 Other microscopic hematuria; E66.3 Overweight; Z68.28 Body mass index [BMI] 28.0-28.9, adult; I10 Essential (primary) hypertension; Z79.899 Other long term (current) drug therapy
CPT/HCPCS: 73030; 96127

== ENCOUNTER → 2024-10-20 13:24 | Outpatient (BNV) | payer OTHER, SELFPAY | PROVIDERS: PCP Internal Medicine; Visit Provider Radiology Diagnostic Radiology | DX: M19.011 Primary osteoarthritis, right shoulder (principal); M19.012 Primary osteoarthritis, left shoulder | CPT/HCPCS: 73030 ==

== ENCOUNTER 2024-10-28 04:30 | Outpatient (REF) | payer OTHER, SELFPAY ==
[2024-10-28 13:29] LABS: Urine Cytology See Pathology rpt
[2024-10-28 13:37] LABS: Appearance Urine Cloudy; Color Urine Yellow; Glucose Urine UA Negative (Negative); Leukocyte Esterase Urine Negative (Negative); Nitrite Urine Negative (Negative); Urine Blood Negative (Negative); Urine Ketones Negative (Negative); Urine Protein Negative (Neg-Trace)
[2024-10-28 13:53] LABS: Bacteria Urine None Seen (None Seen); Calcium Oxalate Crystals Urine Present; Hyaline Casts Urine 0-2 /LPF (0-2); RBC Urine 0-2 /HPF (0-2); Squamous Epithelial Cell Urine 0-2 /HPF (0-2); WBC Urine 0-5 /HPF (0-5)
== END 2024-10-28 04:31 | disposition home or self-care (01) ==
LOC: HO.HMGCLNP 04:30
PROVIDERS: PCP Internal Medicine; Visit Provider Internal Medicine
DX: R31.29 Other microscopic hematuria (principal)
CPT/HCPCS: 81001; 88112

== ENCOUNTER 2024-11-06 14:25 | Outpatient (REF) | payer OTHER, SELFPAY ==
--- NOTE | ~2024-11-06 | US_ITS ---
CLINICAL HISTORY: R31.29 - Other microscopic hematuria US RENAL Comparison: None Findings: Right kidney normal size and echotexture, 10.9 cm length. Left kidney normal size and echotexture, 10.8 cm length. No collecting system dilatation of either kidney. There is a 3 mm echogenic focus in the midpole of the left kidney suggesting a calculus. No renal cortical lesion. Urinary bladder contains debris in the lumen. Prevoid volume 691 mL. Postvoid volume 82 mL. Bilateral ureteral jets are visualized. Prostate measures 3.7 x 4.7 x 4.7 cm. IMPRESSION: 1. No hydronephrosis. 2. Nonobstructing left nephrolithiasis. 3. No significant postvoid residual. 4. Prostatomegaly. This document has been electronically signed by: Mariola Mahan DO on 11/09/2024 13:51:57
== END 2024-11-06 14:26 | disposition home or self-care (01) ==
LOC: HO.HMGCX 14:25
PROVIDERS: PCP Internal Medicine; Visit Provider Internal Medicine
DX: R31.29 Other microscopic hematuria (principal)
CPT/HCPCS: 76770

== ENCOUNTER → 2024-11-06 14:25 | Outpatient (BNV) | payer OTHER, SELFPAY | PROVIDERS: PCP Internal Medicine; Visit Provider Radiology Diagnostic Radiology | DX: N20.0 Calculus of kidney (principal); N40.0 Benign prostatic hyperplasia without lower urinary tract symptoms | CPT/HCPCS: 76770 ==

== ENCOUNTER 2025-03-03 08:58 | Outpatient (AMB) | payer OTHER, SELFPAY ==
--- NOTE | 2025-03-03 09:01 | MHC.OFFVIS ---
Vital Signs 03/03/25 09:11 Height 6 ft Weight 211 lb BMI 28.6 BP 128/71 Blood Pressure Location Lt brachial Position Sitting Pulse 73 Pulse Oximetry (%) 96 Oxygen Delivery Method Room Air Intake Visit Reasons: Colonoscopy Screening Intake Note: Patient new consult for 3rd pre colonoscopy screening. Patient denies any GI issues for today. Beach Attendant Required: No Accompanied by: Self / Same As Patient Allergies No Known Allergies Allergy (Verified 03/03/25 09:09) HPI HPI Colonoscopy Screening: Details: 69-year-old male here for preprocedural meeting to discuss a screening colonoscopy. He is referred by Rabia Chun. PMX TAPAN - not since losing weight Hypertension Impaired fasting glucose BPH History of basal cell cancer on the forehead OA of left shoulder * SURGICAL HISTORY Colonoscopy 2017 at [facility] multiple polyps repeat in 5 years * ALLERGIES: NKDA * [facility] LABS: Laboratory Tests 10/15/24 09:21 WBC 7.0 Hgb 15.4 Hct 44.0 Plt Count 214 Estimated GFR > 60 Total Bilirubin 0.8 AST 20 ALT 30 Alkaline Phosphatase 73 TODAY'S VISIT His last colonoscopy was about 6 years and he had a couple of polyps removed and told to have a 5 years follow up. He denies any bowel or upper GI problems. His TAPAN has resolved with wt loss and he denies any cardiac or respiratory problems. There are no prior problems with anesthesia or sedation but he is relatively naive except for his procedures. No ID problems. No known FHX of crc or polyos, but he had a couple of polyps removed. [facility] Medical History (Updated 03/03/25 @ 09:02 by MARIA INES Aguila) Hyperglycemia TAPAN on CPAP Overweight BPH (benign prostatic hyperplasia) History of basal cell cancer Annual physical exam Surgical History H/O colonoscopy Family History Father No problems noted. Mother Pacemaker Social History Housing: House Patient Tobacco Use Status: Never used Tobacco e-Cigarette/Vaping Use: Never Used service: No Current occupational status: employed Cognitive needs: No Hearing needs: Yes Vision needs: Yes Review of Systems Const Denies fatigue, Denies fever(s), Denies night sweats, Denies poor appetite and Denies weight loss Eyes Details: glasses Reports requires corrective lenses ENT Reports Normal hearing present, Denies dental pain, Denies dysphagia, Denies hearing loss, Denies mouth pain, Denies odynophagia, Denies throat swelling, Denies tongue swelling and Reports other (Dentition adequate) GI Details: Denies abdominal pain, Denies melena, Denies bloating, Denies hematochezia, Denies constipation, Denies GI cramping, Denies dysphagia, Denies excessive flatus, Denies early satiety, Denies heartburn, Denies diarrhea, Denies nausea, Denies odynophagia, Denies vomiting and Denies hematemesis Skin/Breast Denies pruritus, Denies lesions, Denies rash and Denies jaundice Neuro Reports Normal hearing present and Denies Abnormal speech present Endo Denies fatigue Aller/Immun Denies throat swelling and Denies tongue swelling Physical Exam Vital Signs: Last Vital Signs Pulse 73 03/03/25 09:11 BP 128/71 03/03/25 09:11 Pulse Ox 96 03/03/25 09:11 Oxygen Delivery Method Room Air 03/03/25 09:11 BMI result Body Mass Index 28.6 Const General: cooperative, no acute distress, well developed and well groomed Nutritional Appearance: well nourished Orientation/consciousness: oriented to person, oriented to place and oriented to time Limitations: No language barrier HEENT Head: Yes normocephalic and Yes atraumatic Eyes General: appearance normal, both eyes and all related structures Pupils: Equal, round and reactive pupils present Neck Neck: Yes normal visual inspection and Yes no lymphadenopathy Thyroid: Thyroid normal Resp Effort & Inspection: normal respiratory effort and able to speak in complete sentences Auscultation: clear to auscultation bilaterally Cardio Rate: regular rate Rhythm: regular rhythm Heart sounds: Normal, physiologic split S2 sound present Peripheral pulses: radial pulses present and posterior tibial pulses present GI Inspection: No distended and No Abdominal panniculus present Palpation (GI): Soft to palpation, nontender, no guarding, not rigid and No hepatosplenomegaly present Percussion: Yes normal to percussion Auscultation: normal bowel sounds Rectal Exam - Male: Yes deferred Skin General skin exam: no rashes or lesions noted, turgor normal, skin not dry, no jaundice, No spider nevi and no striae Rashes: no rashes Nails: normal Neuro General: oriented to person, oriented to place and oriented to time Cranial nerves: Yes Equal, round and reactive pupils present and Yes Normal hearing present Speech: No Abnormal speech present Extrem General: Yes normal to inspection, No clubbing, No cyanosis and No edema Psych Appearance: grossly normal and well kempt Mental Status: mental status grossly normal Speech and movement: Normal speech and movement present Affect: normal affect Attitude: cooperative Thought process: Normal thought process present and not confabulating Thought content: Normal thought content present Insight: Good insight present (Psych) Judgement: Good judgement present (Psych) Assessment & Plan Assessment & Plan (1) Pre-op examination: Code(s): Z01.818 - Encounter for other preprocedural examination Category: Medical Plan His last colonoscopy was about 6 years and he had a couple of polyps removed and told to have a 5 years follow up. He denies any bowel or upper GI problems. His TAPAN has resolved with wt loss and he denies any cardiac or respiratory problems. There are no prior problems with anesthesia or sedation but he is relatively naive except for his procedures. No ID problems. No known FHX of crc or polyos, but he had a couple of polyps removed. Orders: Orders Colonoscopy - GI Use Only Today Z01.818 - Encounter for other preprocedural examination Medications: New peg 3350-electrolytes 236-22.74-6.74 -5.86 gram (Golytely) until fecal effluent is clear; do not exceed a total volume of 2,000 mL 240 mL PO Q10M 4,000 mL 0RF 1 day Z12.11 - Encounter for screening for malignant neoplasm of colon bisacodyl (Dulcolax (bisacodyl)) 10 mg (2 x 5 mg) PO BEDTIME 4 tabs 0RF 2 days Coding Level of Care Code New Pt Level 3 (09418) Diagnoses Pre-op examination Z01.818
--- OUTSIDE RECORDS SUMMARY | 2025-03-03 09:07 | XMS_ITS | Referral Summary ---
Author Organization [facility] Address [address] [place] [address] Care Team Providers Care Plant Maintenance Engineer Name Role Phone Rabia Chun Primary Care Provider Encounters Date Type Department Care Team Description 12/24/2024 11:00 AM EDT Office Visit [address] [address] Phil Toney MD Arthritis of left shoulder region (Primary Dx) 12/23/2024 Orders Only [address] [address] Phil Toney MD Bilateral shoulder pain, unspecified chronicity (Primary Dx) from Last 3 Months Medications No known medications Active Problems Problem Noted Date Diagnosed Date Arthritis of left shoulder region 12/24/2024 Social History Tobacco Use Types Packs/Day Years Used Date Smoking Tobacco: Never Assessed Sex and Gender Information Value Date Recorded Sex Assigned at Male 11/26/2024 12:04 PM EDT Legal Sex Male 12:01 PM EDT Gender Identity Male 11/26/2024 12:04 PM EDT Sexual Orientation Not on file Plan of Treatment Upcoming Encounters Date Type Department Care Team (Latest Contact Info) Description 03/17/2025 9:30 AM EDT Appointment [facility] [address] [place] [address] [address] [place] [address] 03/31/2025 7:25 AM EDT Hospital Encounter 03/31/2025 7:25 AM EDT - 03/31/2025 10:25 AM EDT Surgery [facility] [employer] [address] [place] [address] Phil Toney MD [address] [place] [address] TOTAL SHOULDER ARTHROPLASTY [43656 (CPT )] 04/15/2025 10:00 AM EDT Follow-Up [facility] [address] [place] [address] Phil Toney MD [address] [place] [address] Scheduled Procedures Name Priority Associated Diagnoses Date/Ti me ARTHROPLASTY, GLENOHUMERAL JOINT, TOTAL Arthritis of left shoulder region 03/31/2025 7:25 AM EDT TENODESIS OF LONG TENDON OF BICEPS Arthritis of left shoulder region 03/31/2025 7:25 AM EDT Procedures * Due to [place] [employer] law, this organization might not be sharing negative HIV tests. Procedure Name Priority Date/Time Associated Diagnosis Comments XR SHOULDER 2+ VW RIGHT Routine 12/24/2024 10:36 AM EDT Bilateral shoulder pain, unspecified chronicity XR SHOULDER 2+ VW LEFT Routine 12/24/2024 10:36 AM EDT Bilateral shoulder pain, unspecified chronicity from Last 3 Months Results * Due to [place] [employer] law, this organization might not be sharing negative HIV tests. * XR Shoulder 2+ vw Right (12/24/2024 10:36 AM EDT) Anatomical Region Laterality Modality Upper Extremities, Shoulder Right Comp uted Radiography 12/25/2024 6:34 AM EDT Impressions 12/25/2024 6:36 AM EDT FINDINGS/IMPRESSION: Bilateral shoulders: Advanced glenohumeral osteoarthritis with osseous remodeling of the glenoid and humeral head with prominent osteophyte along the inferomedial humeral head. Mild to moderate acromioclavicular osteoarthritis. No acute fracture or dislocation. Mild soft tissue swelling. If this radiology report contains a blank impression section, it is an incomplete radiology report. Please contact the interpreting radiologist or applicable radiology division as soon as possible to obtain the completed interpretation. Workstation ID: [id number] Narrative 12/25/2024 6:36 AM EDT COMPARISON: None. Resulting Agency Comment [id number] Procedure Note Kwame Villalobos MD - 12/25/2024 COMPARISON: None. IMPRESSION: FINDINGS/IMPRESSION: Bilateral shoulders: Advanced glenohumeral osteoarthritis with osseousremodeling of the glenoid and humeral head with prominent osteophyte alongthe inferomedial humeral head. Mild to moderate acromioclavicularosteoarthritis. No acute fracture or dislocation. Mild soft tissueswelling. If this radiology report contains a blank impression section, it is anincomplete radiology report. Please contact the interpreting radiologistor applicable radiology division as soon as possible to obtain thecompleted interpretation. Workstation ID: [id number] us Phil Toney MD IMG XR PROCEDURES Final Resul t * XR Shoulder 2+ vw Left (12/24/2024 10:36 AM EDT) Anatomical Region Laterality Modality Upper Extremities, Shoulder Left Comp uted Radiography 12/25/2024 6:34 AM EDT Impressions 12/25/2024 6:36 AM EDT FINDINGS/IMPRESSION: Bilateral shoulders: Advanced glenohumeral osteoarthritis with osseous remodeling of the glenoid and humeral head with prominent osteophyte along the inferomedial humeral head. Mild to moderate acromioclavicular osteoarthritis. No acute fracture or dislocation. Mild soft tissue swelling. If this radiology report contains a blank impression section, it is an incomplete radiology report. Please contact the interpreting radiologist or applicable radiology division as soon as possible to obtain the completed interpretation. Workstation ID: [id number] Narrative 12/25/2024 6:36 AM EDT COMPARISON: None. Resulting Agency Comment [id number] Procedure Note Kwame Villalobos MD - 12/25/2024 COMPARISON: None. IMPRESSION: FINDINGS/IMPRESSION: Bilateral shoulders: Advanced glenohumeral osteoarthritis with osseousremodeling of the glenoid and humeral head with prominent osteophyte alongthe inferomedial humeral head. Mild to moderate acromioclavicularosteoarthritis. No acute fracture or dislocation. Mild soft tissueswelling. If this radiology report contains a blank impression section, it is anincomplete radiology report. Please contact the interpreting radiologistor applicable radiology division as soon as possible to obtain thecompleted interpretation. Workstation ID: [id number] us Phil Toney MD IMG XR PROCEDURES Final Resul t from Last 3 Months Insurance Care Teams Plant Maintenance Engineer Relationship Specialty Start Date End Date Rabia Chun [address] [place] [address] PCP - General Internal Medicine 11/26/24
[2025-03-03 09:11] VITALS: BP 128/71; PULSE 73; O2SAT 96; BMI 28.6
== END 2025-03-03 09:51 | disposition home or self-care (01) ==
LOC: HO.HGI 08:59
PROVIDERS: PCP Internal Medicine; Visit Provider Nurse Practitioner
DX: Z01.818 Encounter for other preprocedural examination (principal); Z12.11 Encounter for screening for malignant neoplasm of colon
CPT/HCPCS: 99203